=== PATIENT | male | born 1985 | race Caucasian/White ===

== ENCOUNTER 2023-09-22 22:48 | Inpatient (IN) | payer OTHER ==
[2023-09-23 00:18] LABS: EOS % 2.5 % (0-4.5); HEMATOCRIT 12.5 % (35.4-49); MCHC 28.5 g/dl (32.0-35.9); MEAN CELL VOLUME 66.2 fl (80-96); MEAN PLT VOLUME 7.7 fl (7.5-11.1); MONO % 9.6 % (3.8-10.2); NEUT % 56.9 % (42.8-82.8); PLATELET COUNT 124 10^3/uL (134-434); RBC 1.89 M/mm3 (4.00-5.60); RDW 22.5 % (11.9-15.9); WHITE BLOOD COUNT 4.9 K/mm3 (4.0-10.0)
[2023-09-23 00:19] LABS: MCH 18.9 pg (25.7-33.7)
[2023-09-23 00:20] LABS: ADD RBC MORPHOLOGY YES; INR 1.69 (0.83-1.09); PROTHROMBIN TIME (PATIENT) 19.5 SEC (9.7-13.0); URINE APPEARANCE CLEAR; URINE BILIRUBIN NEGATIVE (NEGATIVE); URINE COLOR DK YELLOW; URINE GLUCOSE (UA) NEGATIVE (NEGATIVE); URINE KETONE NEGATIVE (NEGATIVE); URINE LEUK ESTERASE NEGATIVE (NEGATIVE); URINE NITRITE NEGATIVE (NEGATIVE); URINE PROTEIN NEGATIVE (NEGATIVE)
[2023-09-23 00:22] LABS: ACTIVATED PTT 32.3 SECONDS (25.2-36.5)
[2023-09-23 00:26] LABS: HEMOGLOBIN 3.6 GM/dL (11.7-16.9)
[2023-09-23 00:39] LABS: POTASSIUM 3.2 mmol/L (3.5-5.1)
[2023-09-23 00:41] LABS: CALCIUM 7.1 mg/dL (8.5-10.1)
[2023-09-23 00:43] LABS: ALBUMIN 2.3 g/dl (3.4-5.0); BLOOD UREA NITROGEN 11.7 mg/dL (7-18); MAGNESIUM 1.2 mg/dL (1.8-2.4)
[2023-09-23] MEDS ORDERED: POTASSIUM CHLORIDE ORAL LIQUID 20 MEQ/15 ML PO ONE (00:44)
[2023-09-23] MEDS ORDERED: MAGNESIUM SULF 50% (8.12 MEQ/2 ML-1 GM VIAL) IVPB ONE (00:44)
[2023-09-23 00:45] LABS: CREATININE 1.2 mg/dL (0.55-1.3)
[2023-09-23 00:47] LABS: BILIRUBIN,TOTAL 1.3 mg/dL (0.2-1); TOT PROT 7.2 g/dl (6.4-8.2)
[2023-09-23] MEDS ORDERED: MAGNESIUM SULFATE IN WATER 2 GM/50 ML IVPB IVPB ONE (00:49)
[2023-09-23] MEDS ORDERED: POTASSIUM CHLORIDE ORAL LIQUID 20 MEQ/15 ML ONE (00:49)
[2023-09-23 00:51] LABS: N-TERMINAL BNP 128.6 pg/ml (5-125)
[2023-09-23] MEDS ORDERED: FUROSEMIDE 40 MG/4 ML INJECTABLE VIAL IVPUSH ONE (02:06)
[2023-09-23] MEDS ORDERED: FUROSEMIDE 40 MG/4 ML INJECTABLE VIAL ONE (02:27)
[2023-09-23 03:19] LABS: BASO % 0.9 % (0-2.0); EOS % 2.7 % (0-4.5); HEMATOCRIT 11.3 % (35.4-49); LYMPH % 35.5 % (8-40); MCHC 29.8 g/dl (32.0-35.9); MEAN CELL VOLUME 64.7 fl (80-96); MEAN PLT VOLUME 8.4 fl (7.5-11.1); MONO % 10.1 % (3.8-10.2); NEUT % 50.8 % (42.8-82.8); PLATELET COUNT 111 10^3/uL (134-434); RBC 1.74 M/mm3 (4.00-5.60); RDW 22.3 % (11.9-15.9); RETICULOCYTES 2.15 % (0.5-1.5); WHITE BLOOD COUNT 4.6 K/mm3 (4.0-10.0)
[2023-09-23 03:53] LABS: HEMOGLOBIN 3.4 GM/dL (11.7-16.9); MCH 19.3 pg (25.7-33.7)
[2023-09-23 13:50] LABS: BILIRUBIN,DIRECT 0.9 mg/dL (0.0-0.2); PHOSPHOROUS 3.2 mg/dL (2.5-4.9)
[2023-09-23] MEDS ORDERED: PANTOPRAZOLE SODIUM 40 MG VIAL IVPUSH SCH (14:30)
[2023-09-23] MEDS ORDERED: PANTOPRAZOLE SODIUM 40 MG VIAL ONE (16:24)
[2023-09-23 17:13] LABS: BASO % 0.9 % (0-2.0); EOS % 2.5 % (0-4.5); LYMPH % 29.2 % (8-40); MCH 20.3 pg (25.7-33.7); MEAN CELL VOLUME 67.7 fl (80-96); MEAN PLT VOLUME 7.9 fl (7.5-11.1); MONO % 8.8 % (3.8-10.2); NEUT % 58.6 % (42.8-82.8); PLATELET COUNT 99 10^3/uL (134-434); RBC 2.42 M/mm3 (4.00-5.60); RDW 22.9 % (11.9-15.9); WHITE BLOOD COUNT 3.7 K/mm3 (4.0-10.0)
[2023-09-23 17:17] LABS: HEMATOCRIT 16.4 % (35.4-49); HEMOGLOBIN 4.9 GM/dL (11.7-16.9)
[2023-09-23 17:48] LABS: POTASSIUM 3.5 mmol/L (3.5-5.1)
[2023-09-23 17:49] LABS: CALCIUM 7.2 mg/dL (8.5-10.1)
[2023-09-23 17:50] LABS: ALBUMIN 2.1 g/dl (3.4-5.0); BLOOD UREA NITROGEN 12.3 mg/dL (7-18); MAGNESIUM 1.3 mg/dL (1.8-2.4)
[2023-09-23 17:53] LABS: CREATININE 1.1 mg/dL (0.55-1.3); PHOSPHOROUS 2.2 mg/dL (2.5-4.9)
[2023-09-23 17:55] LABS: TOT PROT 6.7 g/dl (6.4-8.2)
[2023-09-24 03:28] LABS: HEMATOCRIT 20.8 % (35.4-49); MCH 21.9 pg (25.7-33.7); MCHC 31.3 g/dl (32.0-35.9); MEAN CELL VOLUME 69.7 fl (80-96); MEAN PLT VOLUME 8.2 fl (7.5-11.1); PLATELET COUNT 99 10^3/uL (134-434); RBC 2.98 M/mm3 (4.00-5.60); RDW 22.4 % (11.9-15.9); WHITE BLOOD COUNT 4.2 K/mm3 (4.0-10.0)
[2023-09-24 03:31] LABS: HEMOGLOBIN 6.5 GM/dL (11.7-16.9)
[2023-09-24 09:04] LABS: INR 1.76 (0.83-1.09); PROTHROMBIN TIME (PATIENT) 20.3 SEC (9.7-13.0)
[2023-09-24 09:10] LABS: BASO % 0.5 % (0-2.0); EOS % 3.2 % (0-4.5); HEMATOCRIT 19.5 % (35.4-49); LYMPH % 32.1 % (8-40); MCHC 31.5 g/dl (32.0-35.9); MEAN CELL VOLUME 69.8 fl (80-96); MEAN PLT VOLUME 8.4 fl (7.5-11.1); MONO % 10.7 % (3.8-10.2); NEUT % 53.5 % (42.8-82.8); PLATELET COUNT 91 10^3/uL (134-434); RDW 21.9 % (11.9-15.9); WHITE BLOOD COUNT 3.7 K/mm3 (4.0-10.0)
[2023-09-24 09:14] LABS: HEMOGLOBIN 6.2 GM/dL (11.7-16.9)
[2023-09-24 09:24] LABS: POTASSIUM 3.7 mmol/L (3.5-5.1)
[2023-09-24 09:31] LABS: CALCIUM 7.5 mg/dL (8.5-10.1)
[2023-09-24 09:33] LABS: BLOOD UREA NITROGEN 12.2 mg/dL (7-18); MAGNESIUM 1.2 mg/dL (1.8-2.4)
[2023-09-24 09:34] LABS: CREATININE 1.1 mg/dL (0.55-1.3); PHOSPHOROUS 2.7 mg/dL (2.5-4.9)
[2023-09-24 09:37] LABS: BILIRUBIN,TOTAL 3.3 mg/dL (0.2-1); TOT PROT 6.3 g/dl (6.4-8.2)
[2023-09-24 12:45] LABS: EOS % 3.2 % (0-4.5); HEMOGLOBIN 7.8 GM/dL (11.7-16.9); LYMPH % 30.1 % (8-40); MCH 22.4 pg (25.7-33.7); MCHC 31.2 g/dl (32.0-35.9); MEAN CELL VOLUME 71.8 fl (80-96); MEAN PLT VOLUME 8.3 fl (7.5-11.1); MONO % 11.5 % (3.8-10.2); NEUT % 54.2 % (42.8-82.8); PLATELET COUNT 97 10^3/uL (134-434); RBC 3.48 M/mm3 (4.00-5.60); RDW 22.7 % (11.9-15.9); WHITE BLOOD COUNT 4.1 K/mm3 (4.0-10.0)
[2023-09-24 12:56] VITALS: BMI 31.0
[2023-09-24] MEDS: PANTOPRAZOLE SODIUM 40 MG VIAL IVPUSH SCH ×2 (13:02→21:53)
[2023-09-24] MEDS: CEFTRIAXONE 1 GM in DEXTROSE 5%-WATER - 50 ML IVPB SCH (13:02)
[2023-09-24 15:50] LABS: BASO % 0.8 % (0-2.0); EOS % 3.7 % (0-4.5); HEMATOCRIT 23.1 % (35.4-49); HEMOGLOBIN 7.1 GM/dL (11.7-16.9); MCH 22.2 pg (25.7-33.7); MCHC 30.7 g/dl (32.0-35.9); MEAN CELL VOLUME 72.3 fl (80-96); MEAN PLT VOLUME 8.3 fl (7.5-11.1); MONO % 12.6 % (3.8-10.2); NEUT % 54.9 % (42.8-82.8); PLATELET COUNT 92 10^3/uL (134-434); RDW 22.2 % (11.9-15.9); WHITE BLOOD COUNT 3.7 K/mm3 (4.0-10.0)
[2023-09-24] MEDS: NADOLOL 20 MG TABLET (FP) PO SCH (17:07)
[2023-09-24] MEDS ORDERED: ACETAMINOPHEN 325 MG TABLET (FP) PO ONE (21:36)
[2023-09-25] MEDS ORDERED: ACETAMINOPHEN 500 MG TABLET (FP) PO PRN ×2 (07:55→21:30)
[2023-09-25] MEDS: CEFTRIAXONE 1 GM in DEXTROSE 5%-WATER - 50 ML IVPB SCH (09:00)
[2023-09-25] MEDS: PANTOPRAZOLE SODIUM 40 MG VIAL IVPUSH SCH ×2 (09:00→22:16)
[2023-09-25] MEDS: NADOLOL 20 MG TABLET (FP) PO SCH (09:00)
[2023-09-25 09:44] LABS: BASO % 1.1 % (0-2.0); EOS % 5.5 % (0-4.5); HEMATOCRIT 24.1 % (35.4-49); HEMOGLOBIN 7.3 GM/dL (11.7-16.9); LYMPH % 32.7 % (8-40); MCH 22.2 pg (25.7-33.7); MCHC 30.2 g/dl (32.0-35.9); MEAN CELL VOLUME 73.6 fl (80-96); NEUT % 50.7 % (42.8-82.8); PLATELET COUNT 93 10^3/uL (134-434); RBC 3.27 M/mm3 (4.00-5.60); RDW 22.7 % (11.9-15.9)
[2023-09-25 10:21] LABS: POTASSIUM 3.6 mmol/L (3.5-5.1)
[2023-09-25] MEDS ORDERED: COLCHICINE 0.6 MG CAP PO ONE (10:30)
[2023-09-25 10:37] LABS: ALBUMIN 1.9 g/dl (3.4-5.0); BLOOD UREA NITROGEN 11.6 mg/dL (7-18); CALCIUM 7.5 mg/dL (8.5-10.1)
[2023-09-25 10:40] LABS: CREATININE 1.3 mg/dL (0.55-1.3)
[2023-09-25 10:42] LABS: BILIRUBIN,TOTAL 2.3 mg/dL (0.2-1); TOT PROT 6.2 g/dl (6.4-8.2)
[2023-09-25] MEDS: THIAMINE HCL 100 MG TABLET (FP) PO SCH (11:27)
[2023-09-25] MEDS: FOLIC ACID 1 MG TABLET (FP) PO SCH (11:27)
[2023-09-25 14:56] LABS: PHENCYCLIDINE,URINE NEGATIVE (NEGATIVE); URINE BARBITURATES NEGATIVE (NEGATIVE)
[2023-09-25 14:57] LABS: METHADONE, UR NEGATIVE (NEGATIVE); OPIATES, URI NEGATIVE (NEGATIVE); URINE AMPHETAMINES NEGATIVE (NEGATIVE); URINE BENZODIAZEPINES NEGATIVE (NEGATIVE)
[2023-09-25 15:01] LABS: COCAINE, UR POSITIVE (NEGATIVE)
[2023-09-25] MEDS ORDERED: LIDOCAINE HCL 5% TOP OINTMENT 50 GM TUBE TP PRN (21:30)
[2023-09-25] MEDS ORDERED: COLCHICINE 0.6 MG CAPSULE PO SCH (22:00)
[2023-09-25] MEDS: COLCHICINE 0.6 MG TAB PO SCH (22:15)
[2023-09-26 09:05] LABS: INR 1.82 (0.83-1.09)
[2023-09-26 09:06] LABS: BASO % 0.6 % (0-2.0); EOS % 4.2 % (0-4.5); HEMATOCRIT 23.7 % (35.4-49); HEMOGLOBIN 7.3 GM/dL (11.7-16.9); LYMPH % 34.1 % (8-40); MCH 22.5 pg (25.7-33.7); MCHC 30.6 g/dl (32.0-35.9); MEAN CELL VOLUME 73.5 fl (80-96); MEAN PLT VOLUME 8.2 fl (7.5-11.1); MONO % 13.1 % (3.8-10.2); PLATELET COUNT 88 10^3/uL (134-434); RBC 3.23 M/mm3 (4.00-5.60); RDW 23.8 % (11.9-15.9); RETICULOCYTES 3.12 % (0.5-1.5); WHITE BLOOD COUNT 4.3 K/mm3 (4.0-10.0)
[2023-09-26] MEDS: CEFTRIAXONE 1 GM in DEXTROSE 5%-WATER - 50 ML IVPB SCH (09:10)
[2023-09-26] MEDS: PANTOPRAZOLE SODIUM 40 MG VIAL IVPUSH SCH ×2 (09:10→22:02)
[2023-09-26] MEDS: THIAMINE HCL 100 MG TABLET (FP) PO SCH (09:10)
[2023-09-26] MEDS: FOLIC ACID 1 MG TABLET (FP) PO SCH (09:10)
[2023-09-26] MEDS: COLCHICINE 0.6 MG TAB PO SCH ×2 (09:10→22:02)
[2023-09-26] MEDS: NADOLOL 20 MG TABLET (FP) PO SCH (09:11)
[2023-09-26 09:20] LABS: POTASSIUM 3.9 mmol/L (3.5-5.1)
[2023-09-26 09:25] LABS: BLOOD UREA NITROGEN 13.6 mg/dL (7-18); CALCIUM 7.4 mg/dL (8.5-10.1)
[2023-09-26 09:26] LABS: ALBUMIN 1.9 g/dl (3.4-5.0); MAGNESIUM 1.3 mg/dL (1.8-2.4)
[2023-09-26 09:28] LABS: BILIRUBIN,DIRECT 1.2 mg/dL (0.0-0.2); CREATININE 1.3 mg/dL (0.55-1.3); PHOSPHOROUS 3.5 mg/dL (2.5-4.9)
[2023-09-26 09:30] LABS: BILIRUBIN,TOTAL 1.9 mg/dL (0.2-1); TOT PROT 6.2 g/dl (6.4-8.2)
[2023-09-26 09:50] LABS: ANISOCYTOSIS 3+; MACROCYTOSIS 0; OVALOCYTE 1+
[2023-09-26] MEDS: IRON SUCROSE INJECTION 200 MG in SODIUM CHLORIDE 90 ML IVPB SCH (09:54)
[2023-09-26] MEDS ORDERED: MAGNESIUM SULF 50% (8.12 MEQ/2 ML-1 GM VIAL) IVPB ONE (10:00)
[2023-09-27 09:44] LABS: HEMATOCRIT 24.6 % (35.4-49); HEMOGLOBIN 7.4 GM/dL (11.7-16.9); MCH 22.6 pg (25.7-33.7); MCHC 30.1 g/dl (32.0-35.9); MEAN CELL VOLUME 75.2 fl (80-96); MEAN PLT VOLUME 8.5 fl (7.5-11.1); PLATELET COUNT 89 10^3/uL (134-434); RBC 3.27 M/mm3 (4.00-5.60); RDW 25.2 % (11.9-15.9); WHITE BLOOD COUNT 3.7 K/mm3 (4.0-10.0)
[2023-09-27 09:46] LABS: INR 1.86 (0.83-1.09); PROTHROMBIN TIME (PATIENT) 21.5 SEC (9.7-13.0)
[2023-09-27] MEDS: NADOLOL 20 MG TABLET (FP) PO SCH (09:51)
[2023-09-27] MEDS: THIAMINE HCL 100 MG TABLET (FP) PO SCH (09:51)
[2023-09-27] MEDS: COLCHICINE 0.6 MG TAB PO SCH ×2 (09:51→22:43)
[2023-09-27] MEDS: FOLIC ACID 1 MG TABLET (FP) PO SCH (09:51)
[2023-09-27] MEDS: PANTOPRAZOLE SODIUM 40 MG VIAL IVPUSH SCH (09:53)
[2023-09-27] MEDS: CEFTRIAXONE 1 GM in DEXTROSE 5%-WATER - 50 ML IVPB SCH (09:53)
[2023-09-27 10:07] LABS: POTASSIUM 3.9 mmol/L (3.5-5.1)
[2023-09-27 10:09] LABS: CALCIUM 7.4 mg/dL (8.5-10.1)
[2023-09-27 10:10] LABS: ALBUMIN 1.8 g/dl (3.4-5.0); BLOOD UREA NITROGEN 12.1 mg/dL (7-18); MAGNESIUM 1.4 mg/dL (1.8-2.4)
[2023-09-27 10:13] LABS: CREATININE 1.2 mg/dL (0.55-1.3); PHOSPHOROUS 3.6 mg/dL (2.5-4.9)
[2023-09-27 10:15] LABS: BILIRUBIN,TOTAL 2.2 mg/dL (0.2-1)
[2023-09-27] MEDS: IRON SUCROSE INJECTION 200 MG in SODIUM CHLORIDE 90 ML IVPB SCH (13:06)
[2023-09-28] MEDS: IRON SUCROSE INJECTION 200 MG in SODIUM CHLORIDE 90 ML IVPB SCH (08:44)
[2023-09-28 09:22] LABS: INR 1.8 (0.83-1.09); PROTHROMBIN TIME (PATIENT) 20.8 SEC (9.7-13.0)
[2023-09-28 09:23] LABS: EOS % 4.1 % (0-4.5); HEMATOCRIT 25.8 % (35.4-49); HEMOGLOBIN 7.6 GM/dL (11.7-16.9); LYMPH % 31.1 % (8-40); MCH 22.4 pg (25.7-33.7); MCHC 29.4 g/dl (32.0-35.9); MEAN CELL VOLUME 76.2 fl (80-96); MEAN PLT VOLUME 8.6 fl (7.5-11.1); MONO % 12.1 % (3.8-10.2); NEUT % 51.7 % (42.8-82.8); PLATELET COUNT 101 10^3/uL (134-434); RBC 3.39 M/mm3 (4.00-5.60); RDW 25.3 % (11.9-15.9); WHITE BLOOD COUNT 4.3 K/mm3 (4.0-10.0)
[2023-09-28 09:45] LABS: POTASSIUM 4.1 mmol/L (3.5-5.1)
[2023-09-28 09:57] LABS: CALCIUM 7.7 mg/dL (8.5-10.1)
[2023-09-28 09:58] LABS: BLOOD UREA NITROGEN 12.7 mg/dL (7-18)
[2023-09-28 10:01] LABS: CREATININE 1.2 mg/dL (0.55-1.3)
[2023-09-28 10:03] LABS: BILIRUBIN,TOTAL 1.8 mg/dL (0.2-1); TOT PROT 6.4 g/dl (6.4-8.2)
[2023-09-28] MEDS: THIAMINE HCL 100 MG TABLET (FP) PO SCH (11:19)
[2023-09-28] MEDS: CEFTRIAXONE 1 GM in DEXTROSE 5%-WATER - 50 ML IVPB SCH (11:20)
[2023-09-28] MEDS: NADOLOL 20 MG TABLET (FP) PO SCH (11:20)
[2023-09-28] MEDS: FOLIC ACID 1 MG TABLET (FP) PO SCH (11:20)
[2023-09-28] MEDS: COLCHICINE 0.6 MG TAB PO SCH ×2 (11:20→21:53)
[2023-09-28] MEDS ORDERED: BISACODYL 5 MG TABLET.DR (FP) PO ONE (16:00)
[2023-09-28] MEDS ORDERED: IRON SUCROSE INJECTION 200 MG in SODIUM CHLORIDE 100 ML IVPB ONE (16:11)
[2023-09-28] MEDS ORDERED: PEG 3350/NA SULF BICARB CL/KCL 4000 ML SOLN.RECON PO ONE (17:00)
[2023-09-29] MEDS: CEFTRIAXONE 1 GM in DEXTROSE 5%-WATER - 50 ML IVPB SCH (09:43)
[2023-09-29] MEDS: FOLIC ACID 1 MG TABLET (FP) PO SCH (09:44)
[2023-09-29] MEDS: NADOLOL 20 MG TABLET (FP) PO SCH (09:44)
[2023-09-29] MEDS: COLCHICINE 0.6 MG TAB PO SCH (09:44)
[2023-09-29] MEDS: THIAMINE HCL 100 MG TABLET (FP) PO SCH (09:46)
[2023-09-29] MEDS ORDERED: PANTOPRAZOLE 40 MG TABLET PO SCH (10:00)
[2023-09-29 10:41] LABS: BASO % 1.1 % (0-2.0); EOS % 3.6 % (0-4.5); HEMATOCRIT 25.2 % (35.4-49); HEMOGLOBIN 7.5 GM/dL (11.7-16.9); LYMPH % 31.5 % (8-40); MCH 22.6 pg (25.7-33.7); MCHC 29.6 g/dl (32.0-35.9); MEAN CELL VOLUME 76.3 fl (80-96); MEAN PLT VOLUME 8.2 fl (7.5-11.1); MONO % 13.3 % (3.8-10.2); NEUT % 50.5 % (42.8-82.8); PLATELET COUNT 93 10^3/uL (134-434); RBC 3.31 M/mm3 (4.00-5.60); RDW 25.6 % (11.9-15.9); WHITE BLOOD COUNT 3.6 K/mm3 (4.0-10.0)
[2023-09-29 10:47] LABS: INR 1.94 (0.83-1.09); PROTHROMBIN TIME (PATIENT) 22.4 SEC (9.7-13.0)
[2023-09-29 11:01] LABS: POTASSIUM 3.9 mmol/L (3.5-5.1)
[2023-09-29 11:10] LABS: ANISOCYTOSIS 3+; MACROCYTOSIS 0
[2023-09-29 11:12] LABS: CALCIUM 7.6 mg/dL (8.5-10.1)
[2023-09-29 11:13] LABS: ALBUMIN 1.9 g/dl (3.4-5.0); BLOOD UREA NITROGEN 9.2 mg/dL (7-18)
[2023-09-29 11:16] LABS: CREATININE 1.1 mg/dL (0.55-1.3)
[2023-09-29 11:17] LABS: TOT PROT 6.2 g/dl (6.4-8.2)
[2023-09-29 12:24] VITALS: TEMP 99.5
[2023-09-29 12:40] VITALS: BP 113/61; PULSE 67; RESP 20
== END 2023-09-29 16:06 | disposition home or self-care (01) | DRG 812 ==
LOC: JER 22:48 → JERBED 09-23 01:35 → J5S 09-24 10:37
PROVIDERS: ADMIT Internal Medicine; ATTEND Internal Medicine
PROC: 30233N1 Transfusion of Nonautologous Red Blood Cells into Peripheral Vein, Percutaneous Approach (ICD-10-PCS; 2023-09-23)
PROC: 06L38CZ Occlusion of Esophageal Vein with Extraluminal Device, Via Natural or Artificial Opening Endoscopic (ICD-10-PCS; 2023-09-27)
PROC: 0DBL8ZZ Excision of Transverse Colon, Via Natural or Artificial Opening Endoscopic (ICD-10-PCS; 2023-09-29)
PROC: 0DBM8ZZ Excision of Descending Colon, Via Natural or Artificial Opening Endoscopic (ICD-10-PCS; principal; 2023-09-29 11:00)
DX: D50.0 Iron deficiency anemia secondary to blood loss (chronic) (principal); I85.00 Esophageal varices without bleeding; F10.10 Alcohol abuse, uncomplicated; R00.0 Tachycardia, unspecified; M10.9 Gout, unspecified; R16.1 Splenomegaly, not elsewhere classified; K70.31 Alcoholic cirrhosis of liver with ascites; F32.A Depression, unspecified; D12.4 Benign neoplasm of descending colon; D12.3 Benign neoplasm of transverse colon; K64.8 Other hemorrhoids; K29.20 Alcoholic gastritis without bleeding; D69.6 Thrombocytopenia, unspecified; M25.561 Pain in right knee; F14.10 Cocaine abuse, uncomplicated
CPT/HCPCS: 0241U-QW; 36415; 36430; 71045-TC-FY; 74177-TC; 76705-TC; 80053; 80307; 81003; 82105; 82248; 82272; 82550; 82607; 82728; 82746; 83010; 83540; 83550; 83615; 83735; 83880; 84100; 84466; 84484; 85025; 85027; 85045; 85384; 85610; 85730; 86140; 86705; 86708; 86850; 86900; 86901; 86922; 87040; 87086; 87340; 87517; 87522; 93005; 93010; 93306-TC; 93970-TC; 99291; 99292; J1756; P9058

== ENCOUNTER 2023-10-25 04:33 | Day surgery (SDC) | payer OTHER ==
[2023-10-21 11:40] VITALS: BMI 29.5
[2023-10-25 09:54] LABS: HEMATOCRIT 32.8 % (35.4-49); HEMOGLOBIN 10.3 GM/dL (11.7-16.9); MCH 26.5 pg (25.7-33.7); MCHC 31.3 g/dl (32.0-35.9); MEAN CELL VOLUME 84.7 fl (80-96); MEAN PLT VOLUME 9.2 fl (7.5-11.1); PLATELET COUNT 106 10^3/uL (134-434); RBC 3.87 M/mm3 (4.00-5.60); RDW 28.6 % (11.9-15.9)
[2023-10-25 10:00] LABS: INR 1.54 (0.83-1.09); PROTHROMBIN TIME (PATIENT) 17.8 SEC (9.7-13.0)
[2023-10-25 11:29] VITALS: RESP 16
[2023-10-25 11:34] VITALS: BP 103/61; PULSE 74; TEMP 97.8
== END 2023-10-25 11:46 | disposition home or self-care (01) ==
LOC: JASU-ENDO 04:33
PROVIDERS: ATTEND Internal Medicine Gastroenterology
PROC: 0DB78ZX Excision of Stomach, Pylorus, Via Natural or Artificial Opening Endoscopic, Diagnostic (ICD-10-PCS; 2023-10-25)
PROC: 0DB68ZX Excision of Stomach, Via Natural or Artificial Opening Endoscopic, Diagnostic (ICD-10-PCS; principal; 2023-10-25 08:45)
DX: K70.30 Alcoholic cirrhosis of liver without ascites (principal); I85.10 Secondary esophageal varices without bleeding; K29.50 Unspecified chronic gastritis without bleeding
CPT/HCPCS: 36415; 85027; 85610; 86850; 86900; 86901; 88305-TC; 88342-TC